=== PATIENT | male | born 1950 | race Caucasian/White ===

== ENCOUNTER 2020-08-08 09:42 | Outpatient (CLI) | payer OTHER ==
[2020-08-08] MEDS ORDERED: Magnevist 469MG/ML 20 ML VIAL ONE (13:54)
--- NOTE | 2020-08-08 15:39 | MRI ---
EXAM: MRI of the pelvis/prostate without and with contrast HISTORY: Prostate cancer COMPARISON: None TECHNIQUE: Multiplanar multisequence MR images were obtained of the pelvis without and with IV contra st. Evaluation of this exam was performed with a [employer] workstation. FINDINGS: Central gland: Mild hypertrophy of the central gland consistent with BPH. Prostate volume is estimate d at 13 mL. No suspicious low T2 signal lesion is seen. Peripheral zone: Evaluation for restricted diffusion or low signal on ADC map cannot be performed on this exam secondary to a large amount of artifact from the air bubble in the patient's rectum. No suspicious low T2 signal lesions are seen in the peripheral zone. Seminal vesicles: Intact without abnormality Neurovascular bundles: Intact Pelvic lymph nodes: No pelvic adenopathy Other visualized intrapelvic structures: Scattered diverticula in the colon. Osseous structures: No marrow signal abnormality IMPRESSION: PI-RADS Category 2-low likelihood that a clinically significant cancer is present. Please note that t his exam is limited given the artifact described above from air in the rectum.
== END 2020-08-08 09:43 | disposition home or self-care (01) ==
LOC: TBSIIMAG 09:42
PROVIDERS: ATTEND Radiology Radiation Oncology
DX: C61 Malignant neoplasm of prostate (principal)
CPT/HCPCS: 72197; 82565; A9579

== ENCOUNTER 2021-06-26 13:23 | Outpatient (CLI) | payer OTHER ==
[~2021-06-26 13:23] MED LIST: Iopamidol 370 76% 100 ML VIAL ONE
== END 2021-06-26 13:24 | disposition home or self-care (01) ==
LOC: BICCT 13:23
PROVIDERS: ATTEND Thoracic Surgery (Cardiothoracic Vascular Surgery)
DX: I70.211 Atherosclerosis of native arteries of extremities with intermittent claudication, right leg (principal); I71.4 Abdominal aortic aneurysm, without rupture; I70.0 Atherosclerosis of aorta; J90 Pleural effusion, not elsewhere classified
CPT/HCPCS: 75635; 82565; Q9967

== ENCOUNTER 2021-07-26 13:16 | Outpatient (CLI) | payer OTHER ==
[2021-07-26 14:49] LABS: Hemoglobin 13.7 g/dL (13.5-17.5); Mean Corpuscular HGB CONC 30.8 g/dL (32.0-36.0); Mean Corpuscular Volume 97.6 fl (81.2-95.1); Mean Platelet Volume 9.5 fl (7.4-10.4); Platelet Count 156 10x3/uL (150-450); RBC Distribution Width 14.2 % (11.5-14.5); Red Blood Cell (RBC) Count 4.56 10x6/uL (4.32-5.72); White Blood Cell (WBC) Count 6.9 10x3/uL (3.5-10.5)
[2021-07-26 14:55] LABS: Anion Gap 15 mmol/L (10-20); BUN (Urea Nitrogen) 16 mg/dL (8.4-25.7); Calc. Creatinine Clearance 0 mL/min (70-130); Calcium 9.9 mg/dL (7.8-10.44); Carbon Dioxide 29 mmol/L (23-31); Chloride 104 mmol/L (98-107); Glucose 109 mg/dL (83-110); Potassium 4.7 mmol/L (3.5-5.1); Sodium 143 mmol/L (136-145)
[2021-07-27 13:15] LABS: SARS-CoV-2 PCR by NAA Not Detected (NotDetected)
== END 2021-07-26 13:17 | disposition home or self-care (01) ==
LOC: LABBT 13:16
PROVIDERS: ATTEND Thoracic Surgery (Cardiothoracic Vascular Surgery)
DX: Z01.812 Encounter for preprocedural laboratory examination (principal); I73.9 Peripheral vascular disease, unspecified; Z20.822 Contact with and (suspected) exposure to COVID-19
CPT/HCPCS: 80048; 85027; U0003; U0005

== ENCOUNTER 2021-08-01 16:15 | Inpatient (IN) | payer OTHER ==
[2021-08-06] MEDS ORDERED: ceFAZolin 2 GM/DEX 5% 100 ML BAG ONE (06:37)
[2021-08-06] MEDS ORDERED: Protamine Sulfate 50 MG/5 ML VIAL ONE (06:39)
[2021-08-06] MEDS ORDERED: Heparin 5,000 UNITS/ML VIAL ONE (06:39)
[2021-08-06] MEDS ORDERED: Fentanyl 100 MCG/2 ML VIAL ONE ×3 (07:28→13:25)
[2021-08-06] MEDS ORDERED: PROPOFOL 200 MG/20 ML VIAL ONE (07:44)
[2021-08-06] MEDS ORDERED: Rocuronium Bromide 10 MG/ML (10ML VIAL) ONE (07:44)
[2021-08-06] MEDS ORDERED: Ondansetron PF 4 MG/2 ML Vial ONE (07:44)
[2021-08-06] MEDS ORDERED: PHENYLEPHRINE-NS 100 MCG/ML 10 ML SYRINGE ONE (07:44)
[2021-08-06] MEDS ORDERED: Phenylephrine 10 MG/ML VIAL ONE (08:19)
[2021-08-06] MEDS ORDERED: Heparin 10,000 UNITS/ 10 ML VIAL ONE (10:10)
[2021-08-06] MEDS ORDERED: Promethazine HCl 25 MG/ML VIAL IM PRN (11:52)
[2021-08-06] MEDS ORDERED: Ondansetron HCl/PF 4 MG/2 ML Vial IVP PRN (11:52)
[2021-08-06] MEDS ORDERED: Promethazine HCl 25 MG/ML VIAL IVPB PRN (11:52)
[2021-08-06] MEDS ORDERED: Ondansetron PF 4 MG/2 ML Vial IVP PRN (14:28)
[2021-08-06] MEDS ORDERED: Acetaminophen 325 MG TAB PO PRN (14:28)
[2021-08-06] MEDS ORDERED: Fentanyl 100 MCG/2 ML VIAL SLOW IVP PRN ×2 (14:28)
[2021-08-06] MEDS ORDERED: Gabapentin 400 MG CAP PO SCH (15:00)
[2021-08-06 17:09] VITALS: BMI 31.2
[2021-08-06] MEDS: ceFAZolin Sodium/D5W 2 GM in Premix Bag 1 BAG IVPB SCH ×2 (17:28→22:52)
[2021-08-06] MEDS: Sodium Chloride 0.9% 1,000 ML IV SCH ×2 (17:28→22:48)
[2021-08-06] MEDS: Gabapentin 300 MG CAP PO SCH (17:51)
[2021-08-06] MEDS: Apixaban 2.5 MG TAB PO SCH (21:03)
[2021-08-07] MEDS: HYDROcodone/Acetaminophen 5/325 mg Tablet PO PRN ×4 (00:04→21:28)
[2021-08-07] MEDS: Levothyroxine Sodium 50 MCG TAB PO SCH (04:53)
[2021-08-07] MEDS: ceFAZolin Sodium/D5W 2 GM in Premix Bag 1 BAG IVPB SCH (08:04)
[2021-08-07] MEDS: Digoxin 0.125 MG TAB PO SCH (08:06)
[2021-08-07] MEDS: metFORMIN 500 MG TAB PO SCH (08:06)
[2021-08-07] MEDS: Polyethylene Glycol 3350 17 GM Packet PO SCH (08:06)
[2021-08-07] MEDS: Gabapentin 300 MG CAP PO SCH ×3 (08:06→21:25)
[2021-08-07] MEDS: Rosuvastatin 5 MG TAB PO SCH (08:07)
[2021-08-07] MEDS: Apixaban 2.5 MG TAB PO SCH (08:08)
[2021-08-07] MEDS: DULoxetine 60 MG CAP PO SCH (08:08)
[2021-08-07] MEDS: Aspirin Chewable 81 MG TAB PO SCH (08:08)
[2021-08-07] MEDS: Apixaban 5 MG TAB PO SCH (21:26)
[2021-08-08] MEDS: Levothyroxine Sodium 50 MCG TAB PO SCH (06:34)
[2021-08-08] MEDS: metFORMIN 500 MG TAB PO SCH (08:39)
[2021-08-08] MEDS: Apixaban 5 MG TAB PO SCH (08:39)
[2021-08-08] MEDS: DULoxetine 60 MG CAP PO SCH (08:39)
[2021-08-08] MEDS: Aspirin Chewable 81 MG TAB PO SCH (08:40)
[2021-08-08] MEDS: Gabapentin 300 MG CAP PO SCH (08:40)
[2021-08-08] MEDS: Rosuvastatin 5 MG TAB PO SCH (08:40)
[2021-08-08] MEDS: Digoxin 0.125 MG TAB PO SCH (08:40)
[2021-08-08] MEDS: Polyethylene Glycol 3350 17 GM Packet PO SCH (08:40)
[2021-08-08 12:09] VITALS: BP 119/78; TEMP 97.9
== END 2021-08-08 12:50 | disposition home or self-care (01) | DRG 254 ==
LOC: SURG A 08-06 05:51
PROVIDERS: ADMIT Thoracic Surgery (Cardiothoracic Vascular Surgery); ATTEND Thoracic Surgery (Cardiothoracic Vascular Surgery)
PROC: 041K09L Bypass Right Femoral Artery to Popliteal Artery with Autologous Venous Tissue, Open Approach (ICD-10-PCS; principal; 2021-08-06)
PROC: 04CM0ZZ Extirpation of Matter from Right Popliteal Artery, Open Approach (ICD-10-PCS; 2021-08-06)
DX: E11.51 Type 2 diabetes mellitus with diabetic peripheral angiopathy without gangrene (principal); I70.211 Atherosclerosis of native arteries of extremities with intermittent claudication, right leg; I10 Essential (primary) hypertension; I74.3 Embolism and thrombosis of arteries of the lower extremities; I48.91 Unspecified atrial fibrillation; Z79.82 Long term (current) use of aspirin; Z79.899 Other long term (current) drug therapy; Z79.84 Long term (current) use of oral hypoglycemic drugs; Z85.46 Personal history of malignant neoplasm of prostate
CPT/HCPCS: J1644; J2370; J2405; J2704; J2720; J3010; J7050

== ENCOUNTER 2021-08-02 15:53 | Outpatient (CLI) | payer OTHER ==
[2021-08-02 17:08] LABS: Hemoglobin 14.1 g/dL (13.5-17.5); Mean Corpuscular HGB CONC 31.4 g/dL (32.0-36.0); Mean Corpuscular Hemoglobin 30.1 pg (27.0-33.0); Mean Corpuscular Volume 95.9 fl (81.2-95.1); Mean Platelet Volume 9.6 fl (7.4-10.4); Platelet Count 124 10x3/uL (150-450); RBC Distribution Width 14.3 % (11.5-14.5); Red Blood Cell (RBC) Count 4.68 10x6/uL (4.32-5.72); White Blood Cell (WBC) Count 6.2 10x3/uL (3.5-10.5)
[2021-08-02 17:09] LABS: Anion Gap 11 mmol/L (10-20); BUN (Urea Nitrogen) 17 mg/dL (8.4-25.7); Calc. Creatinine Clearance 0 mL/min (70-130); Calcium 10.3 mg/dL (7.8-10.44); Carbon Dioxide 32 mmol/L (23-31); Chloride 104 mmol/L (98-107); Glucose 92 mg/dL (83-110); Potassium 5.1 mmol/L (3.5-5.1); Sodium 142 mmol/L (136-145)
[2021-08-03 16:49] LABS: SARS-CoV-2 PCR by NAA Not Detected (NotDetected)
== END 2021-08-02 15:54 | disposition home or self-care (01) ==
LOC: LABBT 15:53
PROVIDERS: ATTEND Thoracic Surgery (Cardiothoracic Vascular Surgery)
DX: Z01.812 Encounter for preprocedural laboratory examination (principal); Z20.822 Contact with and (suspected) exposure to COVID-19
CPT/HCPCS: 80048; 85027; U0003; U0005

== ENCOUNTER 2021-11-06 08:56 | Outpatient (CLI) | payer OTHER | END 2021-11-06 08:57 | disposition home or self-care (01) | LOC: RAD 08:56 | PROVIDERS: ATTEND Internal Medicine | DX: R13.10 Dysphagia, unspecified (principal); K22.2 Esophageal obstruction | CPT/HCPCS: 74220 ==

== ENCOUNTER 2022-02-10 09:52 | Day surgery (SDC) | payer OTHER ==
[2022-02-07 12:06] VITALS: BMI 33.0
[2022-02-10] MEDS ORDERED: PROPOFOL 200 MG/20 ML VIAL ONE (12:18)
[2022-02-10] MEDS ORDERED: PHENYLEPHRINE-NS 100 MCG/ML 10 ML SYRINGE ONE (12:18)
== END 2022-02-10 14:07 | disposition home or self-care (01) ==
LOC: SDC 09:52
PROVIDERS: ATTEND Internal Medicine Cardiovascular Disease
PROC: 5A2204Z Restoration of Cardiac Rhythm, Single (ICD-10-PCS; principal; 2022-02-10)
PROC: B246ZZ4 Ultrasonography of Right and Left Heart, Transesophageal (ICD-10-PCS; principal; 2022-02-10)
DX: I48.0 Paroxysmal atrial fibrillation (principal); I11.9 Hypertensive heart disease without heart failure; I08.1 Rheumatic disorders of both mitral and tricuspid valves; I70.0 Atherosclerosis of aorta; I48.92 Unspecified atrial flutter; I45.10 Unspecified right bundle-branch block; I25.10 Atherosclerotic heart disease of native coronary artery without angina pectoris; E78.00 Pure hypercholesterolemia, unspecified; E11.9 Type 2 diabetes mellitus without complications; E03.9 Hypothyroidism, unspecified; J44.9 Chronic obstructive pulmonary disease, unspecified; G47.33 Obstructive sleep apnea (adult) (pediatric); I73.9 Peripheral vascular disease, unspecified; Z86.73 Personal history of transient ischemic attack (TIA), and cerebral infarction without residual deficits; Z87.891 Personal history of nicotine dependence; Z79.01 Long term (current) use of anticoagulants; Z79.82 Long term (current) use of aspirin; Z79.84 Long term (current) use of oral hypoglycemic drugs; Z79.890 Hormone replacement therapy; Z79.899 Other long term (current) drug therapy; Z88.2 Allergy status to sulfonamides; Z95.5 Presence of coronary angioplasty implant and graft
CPT/HCPCS: 92960; 93005; 93010; 93312; J2704

== ENCOUNTER 2022-03-31 15:59 | Inpatient (IN) | payer OTHER ==
[~2022-03-31 15:59] MED LIST changes: -Iopamidol 370 76% 100 ML VIAL ONE; +Iopamidol-370 76% 500 ML 1 ML ONE
[2022-03-31 17:22] LABS: #Basophils 0.1 thou/uL (0.0-0.2); #Eosinphils 0.2 thou/uL (0.0-0.7); #Lymphocytes 1.5 thou/uL (1.20-3.40); #Monocytes 0.9 thou/uL (0.11-0.59); #Neutrophils 5.4 thou/uL (1.40-6.50); %Basophils 0.7 % (0.0-1.0); %Eosinophils 2.8 % (0.0-10.0); %Lymphocytes 18.1 % (21.0-51.0); %Monocytes 11.2 % (0.0-10.0); %Neutrophils 67.3 % (42.0-75.0); Hemoglobin 12.4 g/dL (14.0-18.0); Mean Corpuscular HGB CONC 31.1 g/dL (32.0-36.0); Mean Corpuscular Hemoglobin 32.3 pg (27.0-31.0); Mean Platelet Volume 6.3 fL (7.4-10.4); Platelet Count 160 thou/uL (130-400); RBC Distribution Width 12.8 % (11.5-14.5); Red Blood Cell (RBC) Count 3.85 mill/uL (4.70-6.10); White Blood Cell (WBC) Count 8.1 thou/uL (4.8-10.8)
[2022-03-31 17:42] LABS: ALT (SGPT) Less than 7 U/L (8-55); AST (SGOT) 12 U/L (5-34); Albumin 3.6 g/dL (3.4-4.8); Alkaline Phosphatase 61 U/L (40-110); Anion Gap 14 mmol/L (10-20); BUN (Urea Nitrogen) 15 mg/dL (8.4-25.7); Bilirubin, Total 0.4 mg/dL (0.2-1.2); Calc. Creatinine Clearance 0 mL/min (70-130); Calcium 9.2 mg/dL (7.8-10.44); Carbon Dioxide 32 mmol/L (23-31); Chloride 101 mmol/L (98-107); Globulin 2.5 g/dL (2.4-3.5); Glucose 93 mg/dL (83-110); Potassium 4.9 mmol/L (3.5-5.1); Protein, Total 6.1 g/dL (5.8-8.1); Sodium 142 mmol/L (136-145)
[2022-03-31 19:32] LABS: Bilirubin Negative (Negative); Blood, Urine Negative (Negative); Clarity Clear (Clear); Glucose, Urine (Dipstick) Normal (Negative); Ketone, Urine Negative (Negative); Leukocyte Negative Leu/uL (Negative); Nitrite Negative (Negative); Protein, Urine (Dipstick) 20 mg/dL (Neg-Trace); Specific Gravity, Urine 1.015 (1.002-1.036); Urobilinogen Normal mg/dL (Less than 2); pH, Urine 5.5 (5.0-9.0)
[2022-03-31] MEDS ORDERED: Ondansetron PF 4 MG/2 ML Vial ONE (19:51)
[2022-03-31] MEDS ORDERED: Morphine 4 MG/ML VIAL ONE (19:51)
[2022-04-01 00:25] VITALS: BMI 32.3
[2022-04-01] MEDS ORDERED: Sodium Chloride 0.9% 1,000 ML IV SCH (00:30)
[2022-04-01] MEDS ORDERED: Ondansetron ODT 4 MG TAB PO PRN (01:59)
[2022-04-01] MEDS ORDERED: Acetaminophen 325 MG TAB PO PRN (01:59)
[2022-04-01] MEDS ORDERED: Dextrose 5% in Water 1,000 ML IV PRN (02:05)
[2022-04-01] MEDS ORDERED: Dextrose 50% Abboject 50 ML SYRINGE SLOW IVP PRN (02:05)
[2022-04-01] MEDS ORDERED: HumaLOG 300 UNITS/3 ML VIAL SC PRN ×2 (02:05)
[2022-04-01] MEDS ORDERED: Mirtazapine 30 MG Soltab PO SCH ×3 (02:45→21:00)
[2022-04-01 02:56] LABS: #Eosinphils 0.1 thou/uL (0.0-0.7); #Lymphocytes 1.1 thou/uL (1.20-3.40); #Monocytes 0.6 thou/uL (0.11-0.59); #Neutrophils 3.9 thou/uL (1.40-6.50); %Basophils 0.5 % (0.0-1.0); %Eosinophils 2.5 % (0.0-10.0); %Lymphocytes 19.3 % (21.0-51.0); %Neutrophils 67.7 % (42.0-75.0); Mean Corpuscular HGB CONC 31.3 g/dL (32.0-36.0); Mean Platelet Volume 6.3 fL (7.4-10.4); Platelet Count 142 thou/uL (130-400); RBC Distribution Width 12.7 % (11.5-14.5); Red Blood Cell (RBC) Count 3.93 mill/uL (4.70-6.10); White Blood Cell (WBC) Count 5.7 thou/uL (4.8-10.8)
[2022-04-01 03:19] LABS: Anion Gap 15 mmol/L (10-20); BUN (Urea Nitrogen) 13 mg/dL (8.4-25.7); Calc. Creatinine Clearance 81 mL/min (70-130); Calcium 9.1 mg/dL (7.8-10.44); Carbon Dioxide 30 mmol/L (23-31); Chloride 106 mmol/L (98-107); Glucose 118 mg/dL (83-110); Magnesium 1.9 mg/dL (1.6-2.6); Potassium 4.6 mmol/L (3.5-5.1); Sodium 146 mmol/L (136-145)
[2022-04-01] MEDS ORDERED: HYDROcodone/Acetaminophen 7.5/325 mg Tablet PO PRN (04:47)
[2022-04-01] MEDS: Levothyroxine Sodium 50 MCG TAB PO SCH (04:59)
[2022-04-01] MEDS: DULoxetine 60 MG CAP PO SCH (08:24)
[2022-04-01] MEDS: Aspirin Chewable 81 MG TAB PO SCH (08:25)
[2022-04-01] MEDS: Cholecalciferol 1,000 UNITS (25 MCG) TAB PO SCH (08:25)
[2022-04-01] MEDS: Rosuvastatin 10 MG TAB PO SCH (08:25)
[2022-04-01] MEDS: Apixaban 5 MG TAB PO SCH ×2 (08:26→19:44)
[2022-04-01] MEDS: Dronedarone HCl 400 MG TAB PO SCH ×2 (08:33→15:24)
[2022-04-01] MEDS ORDERED: Gabapentin 400 MG CAP PO SCH ×2 (09:00→10:04)
[2022-04-01] MEDS: HYDROcodone/Acetaminophen 5/325 mg Tablet PO PRN (12:53)
[2022-04-01] MEDS: Gabapentin 100 MG CAP PO SCH ×2 (15:24→19:43)
[2022-04-01] MEDS: Tamsulosin HCl 0.4 MG CAP PO SCH (19:44)
[2022-04-02] MEDS: HYDROcodone/Acetaminophen 5/325 mg Tablet PO PRN ×3 (00:05→20:31)
[2022-04-02 05:33] LABS: #Eosinphils 0.1 thou/uL (0.0-0.7); #Lymphocytes 1.3 thou/uL (1.20-3.40); #Monocytes 0.8 thou/uL (0.11-0.59); #Neutrophils 5.2 thou/uL (1.40-6.50); %Basophils 0.5 % (0.0-1.0); %Eosinophils 1.8 % (0.0-10.0); %Lymphocytes 16.8 % (21.0-51.0); %Monocytes 10.8 % (0.0-10.0); %Neutrophils 70.2 % (42.0-75.0); Hemoglobin 12.7 g/dL (14.0-18.0); Mean Corpuscular HGB CONC 31.7 g/dL (32.0-36.0); Mean Corpuscular Hemoglobin 32.5 pg (27.0-31.0); Mean Platelet Volume 6.5 fL (7.4-10.4); Platelet Count 151 thou/uL (130-400); RBC Distribution Width 12.5 % (11.5-14.5); Red Blood Cell (RBC) Count 3.89 mill/uL (4.70-6.10); White Blood Cell (WBC) Count 7.4 thou/uL (4.8-10.8)
[2022-04-02] MEDS: Levothyroxine Sodium 50 MCG TAB PO SCH (05:38)
[2022-04-02 05:54] LABS: Anion Gap 11 mmol/L (10-20); BUN (Urea Nitrogen) 12 mg/dL (8.4-25.7); Calc. Creatinine Clearance 116 mL/min (70-130); Calcium 9.1 mg/dL (7.8-10.44); Carbon Dioxide 29 mmol/L (23-31); Chloride 105 mmol/L (98-107); Glucose 105 mg/dL (83-110); Potassium 4.3 mmol/L (3.5-5.1); Sodium 141 mmol/L (136-145)
[2022-04-02] MEDS: Gabapentin 100 MG CAP PO SCH ×3 (08:07→20:32)
[2022-04-02] MEDS: Apixaban 5 MG TAB PO SCH ×2 (08:07→20:33)
[2022-04-02] MEDS: Dronedarone HCl 400 MG TAB PO SCH (08:07)
[2022-04-02] MEDS: Cholecalciferol 1,000 UNITS (25 MCG) TAB PO SCH (08:07)
[2022-04-02] MEDS: Aspirin Chewable 81 MG TAB PO SCH (08:08)
[2022-04-02] MEDS: DULoxetine 60 MG CAP PO SCH (08:08)
[2022-04-02] MEDS: Rosuvastatin 10 MG TAB PO SCH (08:08)
[2022-04-02] MEDS ORDERED: Metoprolol Tartrate 25 MG TAB PO SCH (17:00)
[2022-04-02] MEDS: Tamsulosin HCl 0.4 MG CAP PO SCH (20:33)
[2022-04-02] MEDS ORDERED: Melatonin 3 MG TAB PO PRN (21:46)
[2022-04-03] MEDS: Levothyroxine Sodium 50 MCG TAB PO SCH (05:36)
[2022-04-03 08:31] VITALS: TEMP 97.3
[2022-04-03 08:34] VITALS: BP 146/110
[2022-04-03] MEDS ORDERED: Lisinopril 2.5 MG TAB PO SCH (09:00)
[2022-04-03] MEDS: Rosuvastatin 10 MG TAB PO SCH (09:39)
[2022-04-03] MEDS: Aspirin Chewable 81 MG TAB PO SCH (09:39)
[2022-04-03] MEDS: Gabapentin 100 MG CAP PO SCH (09:39)
[2022-04-03] MEDS: Apixaban 5 MG TAB PO SCH (09:41)
[2022-04-03] MEDS: Cholecalciferol 1,000 UNITS (25 MCG) TAB PO SCH (09:41)
[2022-04-03] MEDS: DULoxetine 60 MG CAP PO SCH (09:42)
== END 2022-04-03 10:30 | disposition home or self-care (01) | DRG 193 ==
LOC: ERS 15:59 → 2SW 21:53 → OBSVTOIN 04-01 16:07
PROVIDERS: ADMIT Internal Medicine; ATTEND Internal Medicine
DX: J18.9 Pneumonia, unspecified organism (principal); J96.01 Acute respiratory failure with hypoxia; N17.9 Acute kidney failure, unspecified; Z20.822 Contact with and (suspected) exposure to COVID-19; I95.1 Orthostatic hypotension; I48.0 Paroxysmal atrial fibrillation; R29.6 Repeated falls; E03.9 Hypothyroidism, unspecified; D64.9 Anemia, unspecified; I25.10 Atherosclerotic heart disease of native coronary artery without angina pectoris; E11.51 Type 2 diabetes mellitus with diabetic peripheral angiopathy without gangrene; E78.5 Hyperlipidemia, unspecified; E66.9 Obesity, unspecified; R59.0 Localized enlarged lymph nodes; R91.8 Other nonspecific abnormal finding of lung field; Z95.5 Presence of coronary angioplasty implant and graft; Z91.81 History of falling; Z88.2 Allergy status to sulfonamides; Z79.899 Other long term (current) drug therapy; Z79.01 Long term (current) use of anticoagulants; Z79.51 Long term (current) use of inhaled steroids; Z79.890 Hormone replacement therapy; Z79.84 Long term (current) use of oral hypoglycemic drugs; Z79.82 Long term (current) use of aspirin; I25.2 Old myocardial infarction; Z86.73 Personal history of transient ischemic attack (TIA), and cerebral infarction without residual deficits; Z98.890 Other specified postprocedural states; Z82.49 Family history of ischemic heart disease and other diseases of the circulatory system; Z87.891 Personal history of nicotine dependence; Z68.32 Body mass index [BMI] 32.0-32.9, adult; Z90.49 Acquired absence of other specified parts of digestive tract
CPT/HCPCS: 36415; 36416; 71045; 71275; 74174; 80048; 80053; 81003; 83605; 83735; 84145; 84484; 85025; 87040; 87633; 93005; 94640; G0378; J1956; J2270; J2405; J7050; J7620; Q9967; U0003; U0005

== ENCOUNTER 2022-04-28 09:52 | Outpatient (CLI) | payer OTHER | END 2022-04-28 09:53 | disposition home or self-care (01) | LOC: LABBT 09:52 | PROVIDERS: ATTEND Internal Medicine Gastroenterology | DX: K21.9 Gastro-esophageal reflux disease without esophagitis (principal); I71.4 Abdominal aortic aneurysm, without rupture; G45.9 Transient cerebral ischemic attack, unspecified; I25.10 Atherosclerotic heart disease of native coronary artery without angina pectoris; R49.0 Dysphonia; C61 Malignant neoplasm of prostate; Z86.010 Personal history of colon polyps; Z20.822 Contact with and (suspected) exposure to COVID-19 | CPT/HCPCS: 87811 ==

== ENCOUNTER 2022-05-01 11:37 | Day surgery (SDC) | payer OTHER ==
[2022-04-29 13:14] VITALS: BMI 30.7
[2022-05-01] MEDS ORDERED: Ketamine 50 MG/ML (10ML VIAL) ONE (12:25)
[2022-05-01] MEDS ORDERED: Morphine 2 MG/ML VIAL SLOW IVP SCH (13:45)
[2022-05-01] MEDS ORDERED: Metoprolol Tartrate 5 MG/5 ML VIAL IVP SCH (13:45)
[2022-05-01] MEDS ORDERED: Metoprolol Tartrate 5 MG/5 ML VIAL ONE ×2 (13:47→15:55)
[2022-05-01] MEDS ORDERED: PROPOFOL 200 MG/20 ML VIAL ONE (13:54)
[2022-05-01] MEDS ORDERED: Lidocaine 1% PF 5 ML VIAL ONE (13:54)
== END 2022-05-01 16:40 | disposition home or self-care (01) ==
LOC: SDC 11:37
PROVIDERS: ATTEND Internal Medicine Gastroenterology
PROC: 0DBN8ZZ Excision of Sigmoid Colon, Via Natural or Artificial Opening Endoscopic (ICD-10-PCS; principal; 2022-05-01)
PROC: 0DBL8ZZ Excision of Transverse Colon, Via Natural or Artificial Opening Endoscopic (ICD-10-PCS; principal; 2022-05-01)
PROC: 0DB58ZX Excision of Esophagus, Via Natural or Artificial Opening Endoscopic, Diagnostic (ICD-10-PCS; principal; 2022-05-01)
DX: Z12.11 Encounter for screening for malignant neoplasm of colon (principal); D12.3 Benign neoplasm of transverse colon; D12.5 Benign neoplasm of sigmoid colon; K22.70 Barrett's esophagus without dysplasia; K31.89 Other diseases of stomach and duodenum; K57.30 Diverticulosis of large intestine without perforation or abscess without bleeding; K64.8 Other hemorrhoids; K21.00 Gastro-esophageal reflux disease with esophagitis, without bleeding; K29.70 Gastritis, unspecified, without bleeding; I25.10 Atherosclerotic heart disease of native coronary artery without angina pectoris; I10 Essential (primary) hypertension; E11.9 Type 2 diabetes mellitus without complications; E78.00 Pure hypercholesterolemia, unspecified; I48.91 Unspecified atrial fibrillation; Z86.010 Personal history of colon polyps; Z79.01 Long term (current) use of anticoagulants; Z79.82 Long term (current) use of aspirin; Z79.84 Long term (current) use of oral hypoglycemic drugs; Z79.890 Hormone replacement therapy; Z79.899 Other long term (current) drug therapy; Z88.2 Allergy status to sulfonamides; Z87.891 Personal history of nicotine dependence; Z86.711 Personal history of pulmonary embolism; Z86.73 Personal history of transient ischemic attack (TIA), and cerebral infarction without residual deficits; Z95.0 Presence of cardiac pacemaker
CPT/HCPCS: 88305; 88312; 88313; J2704

== ENCOUNTER 2023-05-12 10:24 | Day surgery (SDC) | payer OTHER ==
[2023-05-11 12:37] VITALS: BMI 33.0
[2023-05-12] MEDS ORDERED: PROPOFOL 200 MG/20 ML VIAL ONE (12:46)
[2023-05-12] MEDS ORDERED: Lidocaine 1% PF 5 ML VIAL ONE (12:46)
[2023-05-12] MEDS ORDERED: Lidocaine 1% MPF 2 ML VIAL ONE (12:53)
== END 2023-05-12 14:45 | disposition home or self-care (01) ==
LOC: SDC 10:24
PROVIDERS: ATTEND Internal Medicine Gastroenterology
PROC: 0DBM8ZZ Excision of Descending Colon, Via Natural or Artificial Opening Endoscopic (ICD-10-PCS; principal; 2023-05-12)
PROC: 0DBM8ZX Excision of Descending Colon, Via Natural or Artificial Opening Endoscopic, Diagnostic (ICD-10-PCS; principal; 2023-05-12)
PROC: 0DBL8ZZ Excision of Transverse Colon, Via Natural or Artificial Opening Endoscopic (ICD-10-PCS; principal; 2023-05-12)
PROC: 0DBN8ZZ Excision of Sigmoid Colon, Via Natural or Artificial Opening Endoscopic (ICD-10-PCS; principal; 2023-05-12)
DX: D12.2 Benign neoplasm of ascending colon (principal); D12.3 Benign neoplasm of transverse colon; D12.4 Benign neoplasm of descending colon; D12.5 Benign neoplasm of sigmoid colon; K57.30 Diverticulosis of large intestine without perforation or abscess without bleeding; K64.8 Other hemorrhoids; I48.20 Chronic atrial fibrillation, unspecified; E11.9 Type 2 diabetes mellitus without complications; I10 Essential (primary) hypertension; K21.00 Gastro-esophageal reflux disease with esophagitis, without bleeding; E78.00 Pure hypercholesterolemia, unspecified; I25.10 Atherosclerotic heart disease of native coronary artery without angina pectoris; Z86.711 Personal history of pulmonary embolism; Z86.010 Personal history of colon polyps; Z90.49 Acquired absence of other specified parts of digestive tract; Z88.2 Allergy status to sulfonamides; Z79.899 Other long term (current) drug therapy; Z79.01 Long term (current) use of anticoagulants; Z79.84 Long term (current) use of oral hypoglycemic drugs
CPT/HCPCS: 88305; J2704